=== PATIENT | male | born 1960 | race Caucasian/White ===

== ENCOUNTER 2017-09-24 14:30 | Emergency (ER) | payer MEDICARE ==
[~2017-09-24] VITALS: Ht 177.8 cm; Wt 58.0 kg
[2017-09-24 14:35] VITALS: BP 155/57; PULSE 75; RESP 18
[2017-09-24] MEDS ORDERED: DIVA500T PO (14:43)
[2017-09-24] MEDS ORDERED: FLUO10TA PO (14:43)
[2017-09-24] MEDS ORDERED: RISP2TAB2 PO (14:43)
[2017-09-24] MEDS ORDERED: SODIUM CHLORID 0.9% 500 ML INJ 500 ML IV ONE (15:00)
[2017-09-24 15:01] VITALS: O2SAT 100
[2017-09-24 15:15] LABS: AUTOMATED NEUTROPHIL # 3.4 TH/MM3 (1.8-7.7); BASOPHIL % 0.9 % (0.0-2.0); EOSINOPHIL % 0.4 % (0.0-4.0); HEMATOCRIT 38.7 % (39.0-51.0); HEMOGLOBIN 13.7 GM/DL (13.0-17.0); LYMPH % 22.5 % (9.0-44.0); LYMPHOCYTE # 1.1 TH/MM3 (1.0-4.8); MEAN CELL VOLUME 87.5 FL (80.0-100.0); MEAN CORPUSCULAR HEMOGLOBIN 31.1 PG (27.0-34.0); MEAN CORPUSCULAR HGB CONC 35.5 % (32.0-36.0); MEAN PLATELET VOLUME 8.7 FL (7.0-11.0); MONO % 7.9 % (0.0-8.0); MONOCYTE # 0.4 TH/MM3 (0-0.9); NEUT % 68.3 % (16.0-70.0); PLATELET COUNT 173 TH/MM3 (150-450); RED BLOOD COUNT 4.42 MIL/MM3 (4.50-5.90); RED CELL DISTRIBUTION WIDTH 12.9 % (11.6-17.2)
[2017-09-24 15:23] LABS: INTERNATIONAL NORMALIZED RATIO 1.1 RATIO; PROTHROMBIN TIME - PATIENT 11.6 SEC (9.8-11.6)
--- NOTE | 2017-09-24 15:23 | RADRPT ---
EXAM DATE/TIME: 09/24/2017 15:10 [facility] COMPARISON: No previous studies available for comparison. INDICATIONS : Fall,dizzy RADIATION DOSE: 37.96 CTDIvol (mGy) MEDICAL HISTORY : None SURGICAL HISTORY : None. ENCOUNTER: Initial ACUITY: 1 day PAIN SCALE: 0/10 LOCATION: cranial TECHNIQUE: Multiple contiguous axial images were obtained of the head. Using automated exposure control and adj ustment of the mA and/or kV according to patient size, radiation dose was kept as low as reasonably a chievable to obtain optimal diagnostic quality images. DICOM format image data is available electro nically for review and comparison. FINDINGS: CEREBRUM: The ventricles are normal for age. No evidence of midline shift, mass lesion, hemorrhage or acute in farction. No extra-axial fluid collections are seen. POSTERIOR FOSSA: The cerebellum and brainstem are intact. The 4th ventricle is midline. The cerebellopontine angle i s unremarkable. EXTRACRANIAL: The visualized portion of the orbits is intact. SKULL: The calvaria is intact. No evidence of skull fracture. CONCLUSION: Negative for an acute process. Adolfo Peacock MD FACR on September 24, 2017 at 15:20 Board Certified Radiologist. This report was verified electronically.
--- NOTE | 2017-09-24 15:25 | PD ---
HPI Chief Complaint: Fall Time Seen by Provider: 14:40 Travel History International Travel<30 days: No Contact w/Intl Traveler<30days: No Traveled to known affect area: No History of Present Illness HPI 57-year-old male that presents to the ED for evaluation of fall yesterday. Patient had a mechanical fall after he tripped over a rug apparently landed on his buttocks and hit his head. He denies taking blood thinners. He states that ever since the fall he has been feeling dizzy. Per patient he feels like the room spinning. She denies losing consciousness. No abdominal pain. No neck or back pain. He states that his pain is 2 out of 10 especially on the back of the head. Otherwise he does not really complain of pain but mainly complains of dizzy spells. Per patient it comes and goes. Per patient when it comes he feels like his heart is palpitating and he gets chest pressure. He denies ever having to like this before. No history of heart disease. No history of heart disease. Denies any urinary or bowel movement issues. Per patient his symptoms get worse when he stands. He does have a history of anxiety and depression. Denies any drugs but states drinking of alcohol on occasion. PFSH Past Medical History Depression: Yes Psychiatric: Yes Past Surgical History Surgical History: No Previous Surgery Social History Alcohol Use: Yes (OCCASSIONAL) Tobacco Use: No Substance Use: No Allergies-Medications (Allergen,Severity, Reaction): Coded Allergies: No Known Allergies (Unverified , 09/24/17) Reported Meds & Prescriptions Reported Meds & Active Scripts Active Meclizine (Meclizine HCl) 25 Mg Tab 25 Mg PO TID PRN Reported Divalproex DR (Divalproex Sodium) 500 Mg Tabdr 500 Mg PO BID Risperidone 2 Mg Tab 2 Mg PO HS Fluoxetine (Fluoxetine HCl) 10 Mg Tab 10 Mg PO DAILY Review of Systems Except as stated in HPI: all other systems reviewed are Neg Physical Exam Narrative GENERAL: Somewhat anorexic SKIN: Warm and dry. HEAD: Atraumatic. Normocephalic. EYES: Pupils equal and round. No scleral icterus. No injection or drainage. ENT: No nasal bleeding or discharge. Mucous membranes pink and moist. Tongue is midline. No uvula deviation. NECK: Trachea midline. No JVD. CARDIOVASCULAR: Regular rate and rhythm. No murmurs, S3, S4. RESPIRATORY: No accessory muscle use. Clear to auscultation. Breath sounds equal bilaterally. GASTROINTESTINAL: Abdomen soft, non-tender, nondistended. Hepatic and splenic margins not palpable. MUSCULOSKELETAL: Extremities without clubbing, cyanosis, or edema. No obvious deformities. Full range of motion of the upper and lower extremities bilaterally. 2+ pulses bilaterally. NEUROLOGICAL: Awake and alert. No obvious cranial nerve deficits. Motor grossly within normal limits. Five out of 5 muscle strength in the arms and legs. Normal speech. PSYCHIATRIC: Appropriate mood and affect; insight and judgment normal. Data Data Last Documented VS Vital Signs Date Time Temp Pulse Resp B/P (MAP) Pulse Ox O2 Delivery O2 Flow Rate FiO2 09/24/17 16:37 120/68 (85) 118/65 (82) 111/63 (79) 09/24/17 16:31 49 18 99 Room Air Orders Orders Electrocardiogram (09/24/17 14:53) Complete Blood Count With Diff (09/24/17 14:53) Comprehensive Metabolic Panel (09/24/17 14:53) Ckmb (Isoenzyme) Profile (09/24/17 14:53) Troponin I (09/24/17 14:53) Prothrombin Time / Inr (Pt) (09/24/17 14:53) Act Partial Throm Time (Ptt) (09/24/17 14:53) Urinalysis - C+S If Indicated (09/24/17 14:53) Magnesium (Mg) (09/24/17 14:53) Thyroid Stimulating Hormone (09/24/17 14:53) Chest, Single Ap (09/24/17 14:53) Ct Brain W/O Iv Contrast(Rout) (09/24/17 14:53) Iv Access Insert/Monitor (09/24/17 14:53) Ecg Monitoring (09/24/17 14:53) Oximetry (09/24/17 14:53) Orthostatic Vital Signs (09/24/17 14:53) Sodium Chlorid 0.9% 500 Ml Inj (Ns 500 M (09/24/17 15:00) Ct Cerv Spine W/O Contrast (09/24/17 ) Meclizine (Antivert) (09/24/17 17:15) Ed Discharge Order (09/24/17 17:02) Labs Laboratory Tests Test 09/24/17 14:57 White Blood Count 5.0 TH/MM3 Red Blood Count 4.42 MIL/MM3 Hemoglobin 13.7 GM/DL Hematocrit 38.7 % Mean Corpuscular Volume 87.5 FL Mean Corpuscular Hemoglobin 31.1 PG Mean Corpuscular Hemoglobin Concent 35.5 % Red Cell Distribution Width 12.9 % Platelet Count 173 TH/MM3 Mean Platelet Volume 8.7 FL Neutrophils (%) (Auto) 68.3 % Lymphocytes (%) (Auto) 22.5 % Monocytes (%) (Auto) 7.9 % Eosinophils (%) (Auto) 0.4 % Basophils (%) (Auto) 0.9 % Neutrophils # (Auto) 3.4 TH/MM3 Lymphocytes # (Auto) 1.1 TH/MM3 Monocytes # (Auto) 0.4 TH/MM3 Eosinophils # (Auto) 0.0 TH/MM3 Basophils # (Auto) 0.0 TH/MM3 CBC Comment DIFF FINAL Differential Comment Prothrombin Time 11.6 SEC Prothromb Time International Ratio 1.1 RATIO Activated Partial Thromboplast Time 25.7 SEC Blood Urea Nitrogen 17 MG/DL Creatinine 0.93 MG/DL Random Glucose 98 MG/DL Total Protein 6.6 GM/DL Albumin 3.4 GM/DL Calcium Level 8.3 MG/DL Magnesium Level 2.2 MG/DL Alkaline Phosphatase 41 U/L Aspartate Amino Transf (AST/SGOT) 9 U/L Alanine Aminotransferase (ALT/SGPT) 8 U/L Total Bilirubin 0.4 MG/DL Sodium Level 142 MEQ/L Potassium Level 3.9 MEQ/L Chloride Level 110 MEQ/L Carbon Dioxide Level 24.3 MEQ/L Anion Gap 8 MEQ/L Estimat Glomerular Filtration Rate 84 ML/MIN Total Creatine Kinase 41 U/L Troponin I LESS THAN 0.02 NG/ML Thyroid Stimulating Hormone 3rd Gen 1.100 uIU/ML MDM Medical Decision Making Medical Screen Exam Complete: Yes Emergency Medical Condition: Yes Medical Record Reviewed: Yes Interpretation(s) Last Impressions Head CT 09/24/171452 Signed Impressions: Service Date/Time: Sunday, September 24, 2017 15:10 - CONCLUSION: Negative for an acute process. Adolfo Peacock MD FACR Chest X-Ray 09/24/171452 Signed Impressions: Service Date/Time: Sunday, September 24, 2017 15:36 - CONCLUSION: No acute disease. Adolfo Peacock MD FACR Cervical Spine CT 09/24/17 0000 Signed Impressions: Service Date/Time: Sunday, September 24, 2017 15:26 - CONCLUSION: No acute bony injury in the cervical spine Amaury Ibrahim MD CBC & BMP Diagram 09/24/17 14:57 Total Protein 6.6, Albumin 3.4, Calcium Level 8.3 L, Magnesium Level 2.2, Alkaline Phosphatase 41 L, Aspartate Amino Transf (AST/SGOT) 9 L, Alanine Aminotransferase (ALT/SGPT) 8 L, Total Bilirubin 0.4 troponin and CKMB negative EKG shows sinus rhythm with no sign of acute ischemia or arrhythmia. Read by me and attending. Differential Diagnosis Syncope versus presyncope versus dizziness versus vertigo versus anxiety versus ACS Narrative Course 57-year-old male the presents to the ED for evaluation of fall and dizziness. Patient was properly examined and was found to have signs and symptoms of unclear etiology but possibly secondary to vertigo. Cannot completely rule out cardiac. Patient had a fall and had a head injury. Labs and imaging order. Labs and imaging showed no sign of acute disease. My attending himself, Dr Lockhart , evaluated the patient himself and after reviewing the medical records he agrees that this is likely vertigo. Likely from the head injury. Patient was reassured. Patient was given meclizine. Patient was given food and drink. Patient was given prescription for meclizine and told to follow-up closely with PCP. See ED if worsening symptoms. Diagnosis Primary Impression: Vertigo Patient Instructions: General Instructions Additional Instructions: Take medication as prescribed. Drink plenty of fluids. Follow-up with PCP. See ED if worsening symptoms. Symptoms will likely last for a couple of days to a week and should resolve on their own. Med/Other Pt SpecificInfo: Prescription(s) given Scripts Meclizine (Meclizine) 25 Mg Tab 25 MG PO TID Y for VERTIGO, #20 TAB 0 Refills Prov: Qasim Lockhart MD 09/24/17 Disposition: 01 DISCHARGE HOME Condition: Stable Wyatt Coreas September 24, 2017 15:25
[2017-09-24 15:45] LABS: ALKALINE PHOSPHATASE 41 U/L (45-117); TOTAL BILIRUBIN ADULT 0.4 MG/DL (0.2-1.0); TOTAL PROTEIN 6.6 GM/DL (6.4-8.2); TROPONIN I LESS THAN 0.02 NG/ML (0.02-0.05)
--- NOTE | 2017-09-24 15:55 | RADRPT ---
EXAM DATE/TIME: 09/24/2017 15:26 [facility] COMPARISON: No previous studies available for comparison. INDICATIONS : Dizzy,fall. RADIATION DOSE: 17.31 CTDIvol (mGy) MEDICAL HISTORY : None SURGICAL HISTORY : None. ENCOUNTER: Initial ACUITY: 1 day PAIN SCALE: 0/10 LOCATION: neck TECHNIQUE: Volumetric scanning of the cervical spine was performed. Multiplanar reconstructions in the sagittal, coronal and oblique axial planes were performed. Using automated exposure control and adjustment o f the mA and/or kV according to patient size, radiation dose was kept as low as reasonably achievable to obtain optimal diagnostic quality images. DICOM format image data is available electronically f or review and comparison. FINDINGS: The cervical spine alignment is satisfactory. There is no evidence of cervical spine fracture. There is mild degenerative change with disc space narrowing and endplate osteophyte formation most notably at C5-6. No significant bony canal stenosis is present. Mild bilateral foraminal stenosis. There is n o evidence of paraspinal hematoma. CONCLUSION: No acute bony injury in the cervical spine Amaury Ibrahim MD on September 24, 2017 at 15:50 Board Certified Radiologist. This report was verified electronically.
[2017-09-24 16:05] LABS: ALBUMIN 3.4 GM/DL (3.4-5.0); ALT (GPT) 8 U/L (12-78); AST (GOT) 9 U/L (15-37); BICARBONATE 24.3 MEQ/L (21.0-32.0); BLOOD UREA NITROGEN 17 MG/DL (7-18); CALCIUM 8.3 MG/DL (8.5-10.1); CHLORIDE 110 MEQ/L (98-107); CREATININE 0.93 MG/DL (0.60-1.30); GLOMERULAR FILTRATION RATE 84 ML/MIN (>89); GLUCOSE,RANDOM 98 MG/DL (74-106); MAGNESIUM 2.2 MG/DL (1.5-2.5); SODIUM (NA) 142 MEQ/L (136-145)
--- NOTE | 2017-09-24 16:16 | RADRPT ---
EXAM DATE/TIME: 09/24/2017 15:36 [facility] COMPARISON: No previous studies available for comparison. INDICATIONS : Syncopal episode, Shortness of breath, and chest pain. MEDICAL HISTORY : None. SURGICAL HISTORY : None. ENCOUNTER: Initial ACUITY: 3 days PAIN SCORE: 3/10 LOCATION: chest FINDINGS: A single view of the chest demonstrates the lungs to be symmetrically aerated without evidence of mas s, infiltrate or effusion. The cardiomediastinal contours are unremarkable. Osseous structures are intact. CONCLUSION: No acute disease. Adolfo Peacock MD FACR on September 24, 2017 at 16:13 Board Certified Radiologist. This report was verified electronically.
[2017-09-24 16:31] VITALS: BP 121/60; PULSE 49; RESP 18; O2SAT 99
[2017-09-24 16:37] VITALS: BP_SYST 111; BP_SYST 118; BP_SYST 120; BP_DIAS 63; BP_DIAS 65; BP_DIAS 68
[2017-09-24] MEDS ORDERED: MECL-62 PO (17:03)
[2017-09-24] MEDS ORDERED: MECLIZINE HCL 25 MG TAB PO ONE (17:15)
[2017-09-24 17:35] LABS: BLOOD, URINE NEG (NEG); GLUCOSE,URINE NEG (NEG); KETONE, URINE 40 mg/dL (NEG); MUCUS URINE FEW /lpf (OCC); NITRITE,URINE NEG (NEG); URINE COLOR YELLOW (YELLW/STRAW); URINE LEUKOCYTE ESTERASE NEG (NEG)
[2017-09-24 17:47] LABS: BILIRUBIN, URINE NEG (NEG)
--- NOTE | 2017-09-25 19:06 | EKG ---
Date Performed: 09/24/2017 Time Performed: 15:00:53 PTAGE: 57 years EKG: Sinus rhythm INCOMPLETE RIGHT BUNDLE BRANCH BLOCK BORDERLINE ECG NO PREVIOUS TRACING DOCTOR: Adan Daniels Interpretating Date/Time 09/25/2017 19:05:29
== END 2017-09-24 19:08 | disposition home or self-care (01) ==
LOC: NEPE 14:30
DX: R42 Dizziness and giddiness (principal); F32.9 Major depressive disorder, single episode, unspecified; I45.10 Unspecified right bundle-branch block; Z79.899 Other long term (current) drug therapy
CPT/HCPCS: 70450; 71045; 72125; 80053; 81001; 82550; 83735; 84443; 84484; 85025; 85610; 85730; 93005; 96360; 99285; J7040